=== PATIENT | male | born 1965 | race Caucasian/White ===

== ENCOUNTER 2023-10-13 10:51 | Inpatient (IN) | payer BC, SELFPAY ==
[2023-10-13] VITALS (9 sets, daily range): BP systolic 102–163; BP diastolic 69–103; BMI 33.7
[2023-10-13 07:13] LABS: % Basophils 0.2 % (0-2); % Eosinophils 2.9 % (0-6); % Immature Granulocytes 0.3 % (0-0.5); % Lymphocytes 25.6 % (20.5-51.1); Absolute Eosinophils 0.3 10^3/uL (0-0.7); Absolute Lymphocytes 2.2 10^3/uL (1.2-3.4); Absolute Monocytes 0.7 10^3/uL (0.1-0.6); Absolute Neutrophils 5.5 10^3/uL (1.4-6.5); Hematocrit 45.4 % (39.0-52.0); Hemoglobin 15.8 g/dL (13.0-18.0); Mean Corp Hgb Conc. 34.8 g/dL (33.0-37.0); Mean Corpuscular Hgb 29.5 pg (27.0-31.0); Mean Corpuscular Volume 84.9 fL (80.0-94.0); Mean Platelet Volume 8.8 fL (7.4-10.4); Nucleated Red Blood Cells % 0 % (-); Platelet Count 240 10^3/uL (130-400); Red Blood Cell Count 5.35 10^6/uL (4.70-6.10); Red Cell Dist. Width 12.4 % (11.5-14.5); White Blood Cell Count 8.8 10^3/uL (4.8-10.8)
[2023-10-13 07:36] LABS: ALT (SGPT) 31 U/L (0-50); AST (SGOT) 31 U/L (17-59); Albumin 4.4 g/dl (3.5-5.0); Alkaline Phosphatase 87 U/L (38-126); Blood Urea Nitrogen 23 mg/dl (9-20); Calcium 10.1 mg/dl (8.4-10.2); Carbon Dioxide 25 mmol/L (22-30); Chloride 102 mmol/L (98-107); Estimated Creatinine Clearance > 125 ml/min; Glucose 102 mg/dl (70-99); Lipase 225 U/L (23-300); Potassium 4.5 mmol/L (3.5-5.1); Sodium 137 mmol/L (135-145); Total Bilirubin 0.7 mg/dl (0.2-1.3); Total Protein 7.3 g/dl (6.3-8.2); eGFR > 60.00
[2023-10-13] MEDS: PEPCID 20 MG IV (07:37)
[2023-10-13] MEDS: ZOFRAN 4 MG IV (07:37)
[2023-10-13 07:54] LABS: Troponin I < 0.012 ng/ml
[2023-10-13] MEDS: TORADOL 15 MG IV (08:11)
--- NOTE | 2023-10-13 08:17 | ED.GENMED ---
History of Present Illness
General
Chief Complaint: Abdominal Pain
Source: patient
Exam Limitations: none
Time Seen by Provider: 10/13/23 07:02
Nursing documentation reviewed up to this point in time: agreed with
Travel History
Have you had any contact with someone who has COVID-19?: No
Do you have any symptoms of coronavirus? Fever > 100 degrees, chills, cough, shortness of breath, sore throat, loss of taste or smell, muscle aches, or headache?: No
History of Present Illness
History of Present Illness:
58-year-old male presenting to the emergency department today with concerns of right-sided abdominal pain starting this morning described as sharp achy mainly to the right side denies any history of surgeries to the abdomen has had some nausea no
vomiting no changes in bowel movements no changes in urination no chest pain or shortness of breath.
Past History
Past History
ED Past Medical History: HTN (Borderline hypertension), Other (Cervical disc disease) and Other (Kidney stones)
ED Past Surgical History: Urological (Ureteral stone removal)
Social History
Tobacco: Non-smoker
Alcohol: Occasional
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
Family History
Family History: Negative Early CAD, CAD or Sudden
Review of Systems
Review of Systems
Allergies reviewed?: Yes
All Other Systems: ROS reviewed and negative except as documented in HPI and ROS
Phy Exam
Physical Exam
Physical Exam:
GENERAL: Alert , in no apparent distress
EYE: pupils equal and reactive
NECK: Supple, no significant adenopathy.
ENT: o/p clr, mmm.
CARDIAC: Regular rate and rhythm .
LUNGS: Clear breath sounds bilaterally, no acute respiratory distress, no wheezes/rales/rhonchi
ABDOMEN: Tenderness throughout the right side of the abdomen and epigastric region no pain to the left side or suprapubic region
NEUROLOGICAL: Alert and oriented, no focal neuro deficits
SKIN: Warm and dry, skin intact.
MUSCULOSKELETAL: No edema, well perfused.
PSYCH: Normal and appropriate interaction.
Course
Orders/Labs/Results
Orders:
Orders
10/13/23 07:05
Complete Blood Count/With Diff Urgent
Comprehensive Metabolic Panel Urgent
Lipase Urgent
10/13/23 07:06
EKG [Electrocardiogram (*1)] Urgent
Reason for Study: Abdominal Pain
10/13/23 07:07
EKG- Treatment ONCE
10/13/23 07:20
CT Abd/Pel (IV only)-DH only Urgent
Comment:
Reason For Exam: right sided abd pain and epigastric pain
Troponin I Urgent
Famotidine [Pepcid] 20 mg IV NOW STA
Ondansetron Injectable [Zofran] 4 mg IV NOW STA
10/13/23 08:08
Ketorolac [Toradol] 15 mg IV NOW STA
10/13/23 09:18
Morphine Sulfate 4 mg IV NOW STA
10/13/23 09:21
0.9% Sodium Chloride 1000 ml [Nss] 1,000 ml IV BOLUS
Abnormal Lab Results
10/13/23
07:05
Absolute Monos (auto) 0.7 H 10^3/uL
(0.1-0.6)
BUN 23 H mg/dl
(9-20)
Glucose 102 H mg/dl
(70-99)
10/13/23 07:05
10/13/23 07:05
Vital Signs
Initial and Last Documented VS:
Initial Vital Signs
Temp Pulse Resp BP Pulse Ox
97.9 F 83 18 163/103 95
10/13/23 06:40 10/13/23 06:40 10/13/23 06:40 10/13/23 06:40 10/13/23 06:40
Last Documented Vital Signs
Temp Pulse Resp BP Pulse Ox
97.9 F 63 22 123/76 90
10/13/23 06:40 10/13/23 10:00 10/13/23 10:00 10/13/23 10:00 10/13/23 10:00
MDM/Problems Addressed
MDM/Problems Addressed:
58-year-old male presenting to the emergency department with concerns of right-sided abdominal pain starting this morning gradually worsening since mild nausea no vomiting no changes in bowel movements on arrival blood pressure initially elevated
but improving without specific treatment. Other vital signs normal no white count labs unremarkable normal bilirubin normal liver function test normal alkaline phosphatase. Normal lipase. CT scan showing small bowel obstruction. Patient with
ongoing discomfort at reassessment was given morphine otherwise discussed with general surgery and admitted to the hospital service for ongoing management.
*Critical Care Note
Total Time (30-74mins, 75-104mins- exclusive of procedures): Not Applicable
ED Attending Note
-
Portions of this chart may have been created with voice recognition software.� Occasional wrong word or��sound alike� substitutions may have occurred due to the inherent limitations of voice recognition software.
Discharge Plan
Departure
Patient Disposition: Admit
Date of Disposition: 10/13/23
Time of Disposition: 10:38
Admit to: Med/Surg
Admit to doctor: Richy
Presentation/result/management discussed w/ accepting MD/DO: Hospitalist
Patient with high blood pressure during this ER visit?: No
Condition: Good
Covid-19: Not Applicable
Discharge Problem:
Small bowel obstruction
Prescriptions:
No Action
acetaminophen [Tylenol] 325 mg Tablet
650 mg PO Q4HPRN PRN (Reason: mild pain)
calcium carbonate [Tums] 200 mg calcium (500 mg) Tablet,Chewable
600 mg PO DAILYPRN PRN (Reason: gas pains)
rosuvastatin [Crestor] 10 mg Tablet
10 mg PO DAILY
Referrals:
Jaymie Crespo PA [Family Provider] -
Interventions
Interventions:
*Risk Screen - Suicide Last Done: 10/13/23 06:40
*General Assessment Last Done: 10/13/23 06:40
*Neglect/Abuse Screening Last Done: 10/13/23 06:40
ED- Fall Risk Assessment Last Done: 10/13/23 06:40
*ED COVID-19 Vaccine History Last Done: 10/13/23 06:40
PK-Dfqeka-Ksptijsqhg Assessment Last Done: 10/13/23 06:53
Discharge Date and Time
Print Language: MALAWIAN
[2023-10-13] MEDS: MORPHINE SULFATE 4 MG IV (09:34)
[2023-10-13] MEDS: NSS 1000 IV ×3 (09:36→20:51)
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
[2023-10-13] MEDS: DILAUDID 0.5 MG IV ×3 (11:15→20:07)
[2023-10-13] MEDS: PROTONIX IV 40 MG IV (12:37)
--- NOTE | 2023-10-13 13:00 | PTCARENOTE ---
Patient vomiting thick yellow fluid. Patient is c/o pins & needle all over, diaphoretic, dizzy, abdominal pain 10/10, continues to dry heave. Physician made aware, order for NGT now. Patient and updated with plan of care and are agreeable to
NGT.
--- NOTE | 2023-10-13 13:20 | PTCARENOTE ---
NGT placed in left nostril. Unable to advance in right nostril. NGT immediately drained thick yellow fluid. NGT had to be irrigated frequently as there was large solid pieces clogging NGT. Patient feels much better, nausea resolved, abdominal is
improved. Spouse at bedside.
[2023-10-13] MEDS: LOVENOX 40 MG SC (18:11)
[2023-10-14] VITALS (13 sets, daily range): BP systolic 112–135; BP diastolic 66–86
[2023-10-14] MEDS: DILAUDID 0.5 MG IV ×6 (00:31→21:08)
[2023-10-14] MEDS: NSS 1000 IV ×2 (04:43→18:38)
[2023-10-14 07:48] LABS: Hematocrit 42.5 % (39.0-52.0); Hemoglobin 14.3 g/dL (13.0-18.0); Mean Corp Hgb Conc. 33.6 g/dL (33.0-37.0); Mean Corpuscular Hgb 29.2 pg (27.0-31.0); Mean Corpuscular Volume 86.7 fL (80.0-94.0); Platelet Count 205 10^3/uL (130-400); Red Cell Dist. Width 12.8 % (11.5-14.5); White Blood Cell Count 5.3 10^3/uL (4.8-10.8)
[2023-10-14] MEDS: PROTONIX IV 40 MG IV (07:55)
[2023-10-14] MEDS: NSS (PRESERVATIVE FREE) 10 ML IV (07:55)
[2023-10-14 08:08] LABS: Blood Urea Nitrogen 22 mg/dl (9-20); Calcium 8.9 mg/dl (8.4-10.2); Carbon Dioxide 27 mmol/L (22-30); Chloride 103 mmol/L (98-107); Estimated Creatinine Clearance > 125 ml/min; Glucose 100 mg/dl (70-99); Magnesium 1.9 mg/dl (1.6-2.3); Potassium 4.1 mmol/L (3.5-5.1); Sodium 137 mmol/L (135-145); eGFR > 60.00
[2023-10-14] MEDS: ANESTHETIC LOZENGE 1 LOZENGE PO ×2 (09:23→23:35)
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
--- NOTE | 2023-10-14 10:30 | W.PN.GS2 ---
Today's Communication / Plan
-
`
Assessment / Plan
-
Assessment: 58-year-old male with probable high-grade partial small bowel obstruction.
Reviewing CT imaging there is an abrupt transition point in the distal ileum likely a few feet from the ileocecal valve. There is a small bowel feces sign proximal to this and nearly completely decompressed small bowel distally. This is new
compared to previous CT imaging in 2018. On discussions with the patient and his he has had some partial small bowel obstruction symptoms on and off again for the past few months.
Given NG tube outputs (bilious and relatively high) CT imaging findings and today's obstruction series showing persistent significant small bowel distention we discussed options for either continued medical management versus consideration of
surgery. I advised patient and his that I would lean toward surgical intervention particularly as he has not had any previous abdominal surgical history and this appears to be a well-defined and rather high-grade small bowel obstruction with
target transition point.
Diagnostic laparoscopy, possible lysis of adhesions; probable laparotomy with small bowel resection was reviewed in detail with the patient. Discussed anticipated operative technique, potential operative findings and their management. Reviewed
benefits and risks of surgery such as but not limited to bleeding, infectious or wound related complications, iatrogenic injury to surrounding viscera, anastomotic related complications such as leak or stricture. We discussed typical postoperative
recovery including hospitalization, dietary changes, activity limitations during recovery.
Any of the patient's or his 's concerns or questions were fully addressed.
Plan: Patient has been added onto the OR schedule today for diagnostic laparoscopy, probable laparotomy, probable small bowel resection
[facility] on-call to the OR
IV fluid hydration and supportive care pending OR availability today
Subjective Data
-
Date of Service: October 14, 2023
Patient seen and examined. at bedside as well.
Reports significant relief with NG tube decompression.
Still with abdominal discomfort but pain has subsided.
No further nausea and vomiting since NG tube placed
Last bowel movement yesterday a.m.
No significant passage of flatus
Still feels tight/bloated
Objective Data
-
Intake and Output
10/13/23 10/14/23 10/15/23
06:59 06:59 06:59
Intake Total 2430 / 2430
Output Total 1250 / 1250
Balance 1180 / 1180
Intake:
Oral fluids 60 / 60
IV fluids (Total) 2250 / 2250
Amount instilled into GI Tube ( 120 / 120
Total)
[place] Sump 120 / 120
Output:
Gastrointestinal tube output ( 950 / 950
Total)
[place] Sump 950 / 950
Urine, Voided 300 / 300
Other:
Number of approximated MODERATE 1
amounts of urine
Vital Signs
Temp Pulse Resp BP Pulse Ox
98.0 F 72 18 135/79 95
10/14/23 07:00 10/14/23 07:00 10/14/23 07:00 10/14/23 07:00 10/14/23 07:00
Lab Results
10/14/23 07:15
10/14/23 07:15
Calcium 8.9 mg/dl (8.4-10.2) 10/14/23 07:15
Magnesium 1.9 mg/dl (1.6-2.3) 10/14/23 07:15
Total Bilirubin 0.7 mg/dl (0.2-1.3) 10/13/23 07:05
AST 31 U/L (17-59) 10/13/23 07:05
ALT 31 U/L (0-50) 10/13/23 07:05
Alkaline Phosphatase 87 U/L (38-126) 10/13/23 07:05
Total Protein 7.3 g/dl (6.3-8.2) 10/13/23 07:05
Albumin 4.4 g/dl (3.5-5.0) 10/13/23 07:05
Physical Exam
-
NAD AAOx3; resting comfortably in hospital bed
NG tube to wall suction with bilious output
ABD: Softly distended, tympanitic, mild tenderness but no rebound rigidity or guarding
--- NOTE | 2023-10-14 11:11 | CM ---
Patient seen with , initial assessment completed. Patient resides with and two sons in a two story home, a few steps to enter. Patient denies DME, VN, or SNF. Patient confirms PCP Jaymie Crespo, pharmacy [facility], confirms
prescription coverage. CM will continue to follow for all discharge planning needs.
Plan; home no needs anticipated.
--- NOTE | 2023-10-14 14:31 | W.SUR.PREOP ---
Pre-Operative Surgical Note
-
I have examined this patient prior to the performance of the scheduled procedure.
The patient's condition is unchanged from the time of the current History and
Physical and the patient is able to undergo the scheduled procedure.
--- NOTE | 2023-10-14 17:21 | W.IMMPOSTOP ---
Addendum entered and electronically signed by Lawson Feliciano MD 10/14/23 18:42:
#[id number]
Original Note:
Surgical Immed Post Op Note
-
Primary Surgeon: Braden
Assisting Surgeon: Bryn
Pre-op Diagnosis: SBO
Post-op Diagnosis: SBO secondary to Meckel's Diverticulum
Procedure Performed: Laparoscopic hand assisted SBR
Anesthesia Type: GETA + 0.25% Marcaine
Specimen / Cultures: Meckel's Diverticulum with associated SB
Estimated Blood Loss: 20mL
Complications: none immediate
Operative Findings: Meckel's diverticulum enveloped within numerous mesenteric adhesions between distal ileum and terminal ileum. Hand-assisted laparoscopic approach required for adequate visualization, retraction and mobilization of this area
which was adherent to right lower quadrant retroperitoneum and pelvic brim. After mobilized Meckel's diverticulum and small bowel mesentery's were into normal anatomic position and segmental small bowel resection performed to healthy
proximal and distal ends from Meckel's. No additional small bowel pathology or intra-abdominal notable findings. Stapled [id number] anastomosis, Luca technique, JANNETTE 80 purple Tri staplers.
Plan: NG tube decompression. Awaiting GI recovery; IV fluid hydration. Mcginnis catheter overnight will assess in a.m. for possible removal.
[2023-10-14] MEDS: LOVENOX 40 MG SC (19:39)
[2023-10-14] MEDS: DILAUDID 1 MG IV (23:35)
[2023-10-15 03:00] VITALS: BP 133/87
[2023-10-15] MEDS: DILAUDID 1 MG IV ×5 (03:27→22:34)
[2023-10-15] MEDS: NSS 1000 IV ×3 (06:00→22:34)
[2023-10-15] MEDS: NSS IV (06:00)
[2023-10-15 06:06] LABS: Hematocrit 39.1 % (39.0-52.0); Mean Corp Hgb Conc. 33.2 g/dL (33.0-37.0); Mean Corpuscular Hgb 29.5 pg (27.0-31.0); Mean Corpuscular Volume 88.9 fL (80.0-94.0); Mean Platelet Volume 8.7 fL (7.4-10.4); Platelet Count 186 10^3/uL (130-400); Red Cell Dist. Width 12.5 % (11.5-14.5); White Blood Cell Count 6.7 10^3/uL (4.8-10.8)
[2023-10-15 06:35] LABS: Blood Urea Nitrogen 14 mg/dl (9-20); Calcium 8.4 mg/dl (8.4-10.2); Carbon Dioxide 30 mmol/L (22-30); Chloride 101 mmol/L (98-107); Estimated Creatinine Clearance > 125 ml/min; Glucose 107 mg/dl (70-99); Potassium 4.6 mmol/L (3.5-5.1); Sodium 135 mmol/L (135-145); eGFR > 60.00
[2023-10-15] MEDS: NSS (PRESERVATIVE FREE) 10 ML IV (07:53)
[2023-10-15] MEDS: PROTONIX IV 40 MG IV (07:53)
[2023-10-15] MEDS: ANESTHETIC LOZENGE 1 LOZENGE PO ×3 (07:53→17:01)
[2023-10-15 08:00] VITALS: BP 104/78
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
[2023-10-15] MEDS: TORADOL 10 MG IV ×3 (10:18→21:49)
--- NOTE | 2023-10-15 10:42 | W.PN.GS2 ---
Addendum entered and electronically signed by Lawson Feliciano MD 10/15/23 12:18:
Patient seen and examined with surgical SKETCH LINER this a.m. Agree with documented progress note.
Overall he is feeling well postoperative day 1. Sitting up at bedside in the chair.
No nausea, no flatus or bowel movement. Postoperative pain well-controlled.
AFVSS
ABD: Soft, nondistended, mild tenderness palpation at incision sites. Incisions with glue dressings. NG tube with some light bilious output in canister. Mcginnis in place clear yellow urine.
A/P: 58-year-old male POD #1 status post lap hand-assisted small bowel resection for Meckel's diverticulum causing high-grade SBO
Routine postoperative care
IV fluid hydration, n.p.o., NG tube decompression awaiting postoperative bowel recovery
Multimodal analgesic options for pain control.
Mcginnis can either come out this evening or tomorrow a.m. depending on patient's ambulatory abilities.
Original Note:
Today's Communication / Plan
-
OOB/Ambulate
NGT to LIWS
Assessment / Plan
-
Assessment: 58-year-old male presenting with high-grade partial small bowel obstruction secondary to meckel's diverticulum
POD #1 Laparoscopic hand assisted SBR
AFVSS
Labs stable post op
Await bowel recovery
Plan:
Continue NPO with NGT to LIWS
Protonix PPI for GI ppx
Multimodal analgesics
IVF while NPO
Void trial in am
OOB/Ambulate
Lovenox for VTE ppx
Subjective Data
-
Date of Service: October 15, 2023
Patient seen and examined at bedside with Dr. Feliciano. Denies n/v. No passage of flatus as of yet. OOB to chair.
Objective Data
-
Intake and Output
10/14/23 10/15/23 10/16/23
06:59 06:59 06:59
Intake Total 2430 / 2430 1410 / 1410
Output Total 1250 / 1250 2470 / 2470
Balance 1180 / 1180 -1060 / -1060
Intake:
Oral fluids 60 / 60 120 / 120
IV fluids (Total) 2250 / 2250 1200 / 1200
Normosol 200 / 200
Amount instilled into GI Tube ( 120 / 120 90 / 90
Total)
[place] Sump 120 / 120 90 / 90
Output:
Gastrointestinal tube output ( 950 / 950 520 / 520
Total)
[place] Sump 950 / 950 520 / 520
Urine, Mcginnis 1650 / 1650
Urine, Voided 300 / 300 300 / 300
Other:
Number of approximated MODERATE 1
amounts of urine
Vital Signs
Temp Pulse Resp BP Pulse Ox
98.3 F 71 16 104/78 92
10/15/23 08:00 10/15/23 08:00 10/15/23 08:00 10/15/23 08:00 10/15/23 08:25
Lab Results
10/15/23 05:49
10/15/23 05:49
Calcium 8.4 mg/dl (8.4-10.2) 10/15/23 05:49
Magnesium 1.9 mg/dl (1.6-2.3) 10/14/23 07:15
Total Bilirubin 0.7 mg/dl (0.2-1.3) 10/13/23 07:05
AST 31 U/L (17-59) 10/13/23 07:05
ALT 31 U/L (0-50) 10/13/23 07:05
Alkaline Phosphatase 87 U/L (38-126) 10/13/23 07:05
Total Protein 7.3 g/dl (6.3-8.2) 10/13/23 07:05
Albumin 4.4 g/dl (3.5-5.0) 10/13/23 07:05
Physical Exam
-
NAD AAOx
NG tube to wall suction with brown/blood tinged outputs
ABD: Soft, mild distention, mild tenderness but no rebound rigidity or guarding. Incisions well approximated/intact glue, no erythema
[2023-10-15 11:22] VITALS: BP 111/72
--- NOTE | 2023-10-15 11:30 | CM ---
CM reviewed chart, continue NG tube. Patient seen bedside with , reports no needs to CM at this time. CM will continue to follow for all discharge planning needs.
Plan; home with when medically stable, no needs anticipated.
[2023-10-15 15:39] VITALS: BP 116/64
[2023-10-15] MEDS: LOVENOX 40 MG SC (17:03)
--- NOTE | 2023-10-15 17:26 | PTCARENOTE ---
Assumed care of pt from previous nurse. Pt ng tube draining brown liquid. Pt abd tender, distended, hypoactive bowel sounds. no noted n/v. Treated with prn pain medication for abdominal discomfort for positive results. Pt call gomez is within reach,
pt rings marlin. will cont to monitor.
[2023-10-15] MEDS: NSS (PRESERVATIVE FREE) 0.25 ML IV (22:51)
[2023-10-15] MEDS: ATIVAN 0.5 MG IV (22:52)
[2023-10-15 23:09] VITALS: BP 119/67
[2023-10-16] MEDS: DILAUDID 1 MG IV ×3 (01:31→18:14)
--- NOTE | 2023-10-16 02:52 | PTCARENOTE ---
Patient NG tube clogged and not suctioning despite flushes, repositioning of patients body. Suction machine, tubing all assessed for malfunction but all working properly. Patient c/o of upper right abdominal discomfort. Driver Sump replaced with
assist of 2nd RN. Unable to replace back in left nare due to resistance. 18 vietnamese placed in right nare with minimal difficulty. 150 cc brown liquid produced. Patient states feeling better in abdomen.
[2023-10-16] MEDS: TORADOL 10 MG IV ×4 (04:15→21:39)
[2023-10-16] MEDS: ANESTHETIC LOZENGE 1 LOZENGE PO ×2 (04:23→12:50)
[2023-10-16] MEDS: DILAUDID 0.5 MG IV ×2 (06:16→22:24)
[2023-10-16] MEDS: NSS 1000 IV ×3 (06:18→23:54)
[2023-10-16 06:51] LABS: Hematocrit 36.6 % (39.0-52.0); Hemoglobin 12.3 g/dL (13.0-18.0); Mean Corp Hgb Conc. 33.6 g/dL (33.0-37.0); Mean Corpuscular Hgb 29.3 pg (27.0-31.0); Mean Corpuscular Volume 87.1 fL (80.0-94.0); Mean Platelet Volume 8.8 fL (7.4-10.4); Platelet Count 190 10^3/uL (130-400); Red Cell Dist. Width 12.5 % (11.5-14.5); White Blood Cell Count 8.7 10^3/uL (4.8-10.8)
[2023-10-16 07:19] LABS: Blood Urea Nitrogen 19 mg/dl (9-20); Calcium 8.4 mg/dl (8.4-10.2); Carbon Dioxide 27 mmol/L (22-30); Chloride 103 mmol/L (98-107); Estimated Creatinine Clearance > 125 ml/min; Glucose 84 mg/dl (70-99); Potassium 3.6 mmol/L (3.5-5.1); Sodium 137 mmol/L (135-145); eGFR > 60.00
[2023-10-16 07:30] VITALS: BP 147/82
[2023-10-16] MEDS: PROTONIX IV 40 MG IV (08:09)
[2023-10-16] MEDS: NSS (PRESERVATIVE FREE) 10 ML IV (08:10)
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
--- NOTE | 2023-10-16 10:23 | CM ---
Patient seen bedside.
Patient NPO, has NGT tube.
Plan: home no needs anticipated
--- NOTE | 2023-10-16 11:09 | W.PN.GS2 ---
Addendum entered and electronically signed by Lawson Feliciano MD 10/16/23 13:40:
Patient seen and examined earlier in a.m. with nurse practitioner. Agree with documented progress note
Overall he feels well with his postoperative recovery.
Minimal postoperative incisional discomfort.
Tolerating NG tube which was apparently replaced overnight as it was felt to not be functioning adequately.
Feels gas cramp/movement and feels as though he may be having the urge to pass flatus or bowel movement
AFVSS
ABD: Soft, nondistended, minimal incisional tenderness. Incision clean with glue dressings
NG tube nonbilious outputs
A/P: POD #2 status post lap assisted small bowel resection for Meckel's diverticulum causing small bowel obstruction
Doing well with his postoperative recovery
Maintain NG tube today awaiting further signs of GI recovery
IV fluid hydration and routine supportive care
Anticipating high likelihood of removing NG tube tomorrow and starting on clear liquid diet
Original Note:
Today's Communication / Plan
-
NPO with NGT to LIWS
Assessment / Plan
-
Assessment: 58-year-old male presenting with high-grade partial small bowel obstruction secondary to meckel's diverticulum
POD #2 Laparoscopic with hand assisted SBR
AFVSS
Labs stable post op
Await bowel recovery
Plan:
Continue NPO with NGT to LIWS
Protonix PPI for GI ppx
Multimodal analgesics
IVF while NPO
OOB/Ambulate
Lovenox for VTE ppx
Subjective Data
-
Date of Service: October 16, 2023
Patient seen and examined at bedside with Dr. Feliciano. Reports NGT not functioning well overnight and he developed discomfort/churning sensation, tube exchanged and now with symptomatic relief. No passage of flatus as of yet. Minimal abdominal
discomfort. Voiding.
Objective Data
-
Intake and Output
10/15/23 10/16/23 10/17/23
06:59 06:59 06:59
Intake Total 1410 / 1410 3330 / 3330
Output Total 2470 / 2470 1700 / 1700
Balance -1060 / -1060 1630 / 1630
Intake:
Oral fluids 120 / 120 240 / 240
IV fluids (Total) 1200 / 1200 2880 / 2880
Normosol 200 / 200
Amount instilled into GI Tube ( 90 / 90 210 / 210
Total)
[place] Sump 90 / 90 210 / 210
Output:
Gastrointestinal tube output ( 520 / 520 1100 / 1100
Total)
[place] Sump 520 / 520 1100 / 1100
Urine, Mcginnis 1650 / 1650 600 / 600
Urine, Voided 300 / 300
Vital Signs
Temp Pulse Resp BP Pulse Ox
98.1 F 75 18 147/82 93
10/16/23 07:30 10/16/23 07:30 10/16/23 07:30 10/16/23 07:30 10/16/23 07:30
Lab Results
10/16/23 06:28
10/16/23 06:28
Calcium 8.4 mg/dl (8.4-10.2) 10/16/23 06:28
Magnesium 1.9 mg/dl (1.6-2.3) 10/14/23 07:15
Total Bilirubin 0.7 mg/dl (0.2-1.3) 10/13/23 07:05
AST 31 U/L (17-59) 10/13/23 07:05
ALT 31 U/L (0-50) 10/13/23 07:05
Alkaline Phosphatase 87 U/L (38-126) 10/13/23 07:05
Total Protein 7.3 g/dl (6.3-8.2) 10/13/23 07:05
Albumin 4.4 g/dl (3.5-5.0) 10/13/23 07:05
Physical Exam
-
NAD AAOx
NG tube to wall suction with brown/blood tinged outputs
ABD: Soft, mild distention, mild tenderness but no rebound rigidity or guarding. Incisions well approximated/intact glue, no erythema
[2023-10-16 15:26] VITALS: BP 152/96
[2023-10-16] MEDS: LOVENOX 40 MG SC (16:01)
[2023-10-16] MEDS: OFIRMEV 100 IV (21:41)
[2023-10-16 23:15] VITALS: BP 142/83
[2023-10-17] MEDS: DILAUDID 1 MG IV ×4 (02:40→23:46)
[2023-10-17] MEDS: TORADOL 10 MG IV ×4 (04:11→21:27)
[2023-10-17 07:00] VITALS: BP 145/85
[2023-10-17] MEDS: OFIRMEV 100 IV (07:08)
[2023-10-17] MEDS: PROTONIX IV 40 MG IV (07:34)
[2023-10-17] MEDS: NSS 1000 IV ×2 (07:35→15:45)
[2023-10-17] MEDS: NSS (PRESERVATIVE FREE) 10 ML IV (07:35)
--- NOTE | 2023-10-17 08:30 | W.PN.GS2 ---
Today's Communication / Plan
-
`
Assessment / Plan
-
Assessment: 58-year-old male POD#3 s/p Lap assist BAR/SBR for obstructing Meckel diverticulum
AFVSS
returning GI function, NGT outputs a bit high but are clear and seems to just be ice/saliva
+flatus no BM
Plan:
given medical stability will transfer to my surgical service - d/w dr mir
NGT removed but going slow only with ice chips and sips for now
renewed IVF
okay to shower
Protonix PPI for GI ppx
Lovenox for VTE ppx
Subjective Data
-
Date of Service: October 17, 2023
pt seen and examined
feeling well
minimal post op pain
no nausea, taking in some ice chips with NGT
flatus at times
Objective Data
-
Intake and Output
10/16/23 10/17/23 10/18/23
06:59 06:59 06:59
Intake Total 3330 / 3330 3160 / 3160
Output Total 1700 / 1700 3675 / 3675
Balance 1630 / 1630 -515 / -515
Intake:
Oral fluids 240 / 240 240 / 240
IV fluids (Total) 2880 / 2880 2640 / 2640
IV piggybacks 100 / 100
Amount instilled into GI Tube ( 210 / 210 180 / 180
Total)
Tracy Sump 210 / 210 180 / 180
Output:
Gastrointestinal tube output ( 1100 / 1100 1125 / 1125
Total)
Tracy Sump 1100 / 1100 1125 / 1125
Urine, Mcginnis 600 / 600
Urine, Voided 2550 / 2550
Vital Signs
Temp Pulse Resp BP Pulse Ox
98.2 F 71 17 142/83 95
10/16/23 23:15 10/16/23 23:15 10/16/23 23:15 10/16/23 23:15 10/16/23 23:15
Lab Results
10/16/23 06:28
10/16/23 06:28
Calcium 8.4 mg/dl (8.4-10.2) 10/16/23 06:28
Magnesium 1.9 mg/dl (1.6-2.3) 10/14/23 07:15
Total Bilirubin 0.7 mg/dl (0.2-1.3) 10/13/23 07:05
AST 31 U/L (17-59) 10/13/23 07:05
ALT 31 U/L (0-50) 10/13/23 07:05
Alkaline Phosphatase 87 U/L (38-126) 10/13/23 07:05
Total Protein 7.3 g/dl (6.3-8.2) 10/13/23 07:05
Albumin 4.4 g/dl (3.5-5.0) 10/13/23 07:05
Physical Exam
-
NAD AAOx3
ABD: soft, ND, minimal tenderness at incisions
incisions with glue dressings
NGT with clear
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
--- NOTE | 2023-10-17 09:49 | PTCARENOTE ---
NG tube removed by physician . Pt is NPO with sips of clears . Aware to take it slow . Aware to let nurse know of any increasing pain or discomfort.
--- NOTE | 2023-10-17 13:37 | PTCARENOTE ---
c/o sore neck (had headache earlier today) he would use motrin at home . Ice applied. Physician notified .
[2023-10-17 15:00] VITALS: BP 160/95
[2023-10-17] MEDS: LOVENOX 40 MG SC (17:22)
--- NOTE | 2023-10-17 18:27 | PTCARENOTE ---
Patient has been tolerating sips of clears (isma scotty and apple juice) . Neck pain is slightly improved , utilizing ice pack and warm blanket to neck and shoulder with some relief.
[2023-10-17] MEDS: BenGay-Like 1 APPLIC TOPICAL (21:26)
[2023-10-17 23:15] VITALS: BP 151/87
[2023-10-18] MEDS: NSS 1000 IV (01:46)
[2023-10-18] MEDS: TORADOL 10 MG IV (04:06)
[2023-10-18] MEDS: DILAUDID 1 MG IV ×2 (05:33→21:51)
[2023-10-18 07:20] VITALS: BP 143/84
[2023-10-18] MEDS: PROTONIX IV 40 MG IV (08:28)
[2023-10-18] MEDS: NSS (PRESERVATIVE FREE) 10 ML IV (08:28)
[2023-10-18] MEDS: BenGay-Like 1 APPLIC TOPICAL ×4 (08:40→21:48)
[2023-10-18 10:18] VITALS: BMI 33.7
[2023-10-18] MEDS: TYLENOL 650 MG PO ×4 (11:30→21:48)
[2023-10-18] MEDS: NSS IV (11:30)
--- NOTE | 2023-10-18 11:40 | W.PN.GS2 ---
Today's Communication / Plan
-
Clear liquid diet
OOB/Ambulate
Assessment / Plan
-
Assessment: 58-year-old male POD#4 s/p Lap assist BAR/SBR for obstructing Meckel diverticulum
AFVSS
returning GI function, NGT out on 10/16
+flatus no BM
neck pain/headache from prior injury, has OP follow with neuro planned
Plan:
Advance to [facility]
Multimodal analgesics both scheduled and prn. C/W Bengay topically to neck
d/c IVF as he is tolerating clears
okay to shower
Protonix PPI for GI ppx
Lovenox for VTE ppx
Subjective Data
-
Date of Service: October 18, 2023
Patient seen and examined at bedside with Dr. Vásquez. Nikoies n/v. Passing flatus, no BM as of yet. Tolerating sips of clears. 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
Objective Data
-
Intake and Output
10/17/23 10/18/23 10/19/23
06:59 06:59 06:59
Intake Total 3160 / 3160 3370 / 3370 1440 / 1440
Output Total 3675 / 3675 2375 / 2375
Balance -515 / -515 995 / 995 1440 / 1440
Intake:
Oral fluids 240 / 240 2080 / 2080
IV fluids (Total) 2640 / 2640 1200 / 1200 1440 / 1440
IV piggybacks 100 / 100
Amount instilled into GI Tube ( 180 / 180 90 / 90
Total)
Wilkin Sump 180 / 180 90 / 90
Output:
Gastrointestinal tube output ( 1124 / 1125
Total)
Wilkin Sump 112 / 1125
Urine, Voided 2550 / 2550 2375 / 2375
Vital Signs
Temp Pulse Resp BP Pulse Ox
98.3 F 65 17 143/84 94
10/18/23 07:20 10/18/23 07:20 10/18/23 07:20 10/18/23 07:20 10/18/23 07:20
Lab Results
10/16/23 06:28
10/16/23 06:28
Calcium 8.4 mg/dl (8.4-10.2) 10/16/23 06:28
Magnesium 1.9 mg/dl (1.6-2.3) 10/14/23 07:15
Total Bilirubin 0.7 mg/dl (0.2-1.3) 10/13/23 07:05
AST 31 U/L (17-59) 10/13/23 07:05
ALT 31 U/L (0-50) 10/13/23 07:05
Alkaline Phosphatase 87 U/L (38-126) 10/13/23 07:05
Total Protein 7.3 g/dl (6.3-8.2) 10/13/23 07:05
Albumin 4.4 g/dl (3.5-5.0) 10/13/23 07:05
Physical Exam
-
NAD AAOx3
ABD: soft, mild distention, minimal tenderness at incisions
incisions with glue dressings
[2023-10-18] MEDS: NEURONTIN 100 MG PO ×2 (12:03→20:20)
[2023-10-18 15:02] VITALS: BP 153/92
--- NOTE | 2023-10-18 15:29 | CM ---
Patient seen on phone, asked for CM to return at a later time. Chart reviewed, per general surgery note, patient on clear liquid diet. CM will continue to follow for discharge planning needs.
Plan; home no needs anticipated.
[2023-10-18] MEDS: LOVENOX 40 MG SC (18:17)
[2023-10-18 23:30] VITALS: BP 137/75
[2023-10-19] MEDS: TYLENOL PO (03:00)
[2023-10-19] MEDS: TYLENOL 650 MG PO ×2 (05:23→10:58)
--- NOTE | 2023-10-19 07:28 | W.PN.GS2 ---
Today's Communication / Plan
-
`
Assessment / Plan
-
Assessment: 58-year-old male POD#5 s/p Lap assist BAR/SBR for obstructing Meckel diverticulum
AFVSS
doing well with return of GI function
neck pain/headache from prior injury, has OP follow with neuro planned
Plan:
low residue diet - smaller portions/supplements
okay for d/c home if luciano diet advancement
d/c instructions reviewed
Subjective Data
-
Date of Service: October 19, 2023
pt seen and examined
feeling well, luciano liquid diet
no nausea
+fl and BM
no distention/bloating
Objective Data
-
Intake and Output
10/18/23 10/19/23 10/20/23
06:59 06:59 06:59
Intake Total 3370 / 3370 2820 / 2820
Output Total 2375 / 2375
Balance 995 / 995 2820 / 2820
Intake:
Oral fluids 2080 / 2080 1380 / 1380
IV fluids (Total) 1200 / 1200 1440 / 1440
Amount instilled into GI Tube ( 90 / 90
Total)
Pigeon Sump 90 / 90
Output:
Urine, Voided 2375 / 2375
Other:
Number of approximated MODERATE 2
amounts of urine
Number of approximated LARGE 3
amounts of urine
Vital Signs
Temp Pulse Resp BP Pulse Ox
97.9 F 67 16 137/75 95
10/18/23 23:30 10/18/23 23:30 10/18/23 23:30 10/18/23 23:30 10/18/23 23:30
Lab Results
10/16/23 06:28
10/16/23 06:28
Calcium 8.4 mg/dl (8.4-10.2) 10/16/23 06:28
Magnesium 1.9 mg/dl (1.6-2.3) 10/14/23 07:15
Total Bilirubin 0.7 mg/dl (0.2-1.3) 10/13/23 07:05
AST 31 U/L (17-59) 10/13/23 07:05
ALT 31 U/L (0-50) 10/13/23 07:05
Alkaline Phosphatase 87 U/L (38-126) 10/13/23 07:05
Total Protein 7.3 g/dl (6.3-8.2) 10/13/23 07:05
Albumin 4.4 g/dl (3.5-5.0) 10/13/23 07:05
Physical Exam
-
NAD AAOX3
ABD: soft, ND, NTTP
incisions with glue dressings
[2023-10-19 07:48] VITALS: BP 144/90
[2023-10-19] MEDS: NEURONTIN 100 MG PO (08:14)
[2023-10-19] MEDS: BenGay-Like 1 APPLIC TOPICAL (08:15)
--- NOTE | 2023-10-19 13:32 | CM ---
CM reviewed chart, patient plan home no needs.
Plan; home with , no needs.
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
== END 2023-10-19 12:13 | disposition home or self-care (01) | DRG 330 ==
LOC: 4 WEST ACU 10:51
PROVIDERS: Physician Assistant; ADMITTING PHYSICIAN Internal Medicine; ATTENDING PHYSICIAN Surgery; CONSULT PHYSICIAN Surgery; EMERGENCY PHYSICIAN Emergency Medicine; FAMILY PHYSICIAN Physician Assistant Medical
PROC: 0D9670Z Drainage of Stomach with Drainage Device, Via Natural or Artificial Opening (ICD-10-PCS; 2023-10-14)
PROC: 0DN84ZZ Release Small Intestine, Percutaneous Endoscopic Approach (ICD-10-PCS; 2023-10-14)
PROC: 0DB84ZZ Excision of Small Intestine, Percutaneous Endoscopic Approach (ICD-10-PCS; 2023-10-14)
DX: Q43.0 Meckel's diverticulum (displaced) (hypertrophic) (principal); K56.51 Intestinal adhesions [bands], with partial obstruction; I10 Essential (primary) hypertension; M50.90 Cervical disc disorder, unspecified, unspecified cervical region; E78.00 Pure hypercholesterolemia, unspecified; I45.10 Unspecified right bundle-branch block; R51.9 Headache, unspecified; F07.81 Postconcussional syndrome; S01.01XD Laceration without foreign body of scalp, subsequent encounter; V89.2XXD Person injured in unspecified motor-vehicle accident, traffic, subsequent encounter; Z88.0 Allergy status to penicillin; Z87.442 Personal history of urinary calculi
CPT/HCPCS: 88304; 74018; 74177; 80048; 80053; 83690; 83735; 84484; 85025; 85027; 93005; 96361; 96374; 96375; 99285; Q9967

== ENCOUNTER → 2024-04-07 08:04 | Outpatient (REF) | payer BC, SELFPAY | LOC: RAD 08:04 | PROVIDERS: ATTENDING PHYSICIAN Surgery; FAMILY PHYSICIAN Physician Assistant Medical | DX: R10.32 Left lower quadrant pain (principal); Z90.49 Acquired absence of other specified parts of digestive tract | CPT/HCPCS: 74177; Q9967 ==